=== PATIENT | female | born 1960 ===

== ENCOUNTER 2018-04-26 08:24 | Outpatient (CLI) | payer OTHER | END 2018-04-26 08:27 | disposition home or self-care (01) | LOC: SONOGRAMA 08:24 | DX: E04.1 Nontoxic single thyroid nodule (principal) ==

== ENCOUNTER 2023-09-18 09:50 | Outpatient (CLI) | payer OTHER | END 2023-09-18 09:57 | disposition home or self-care (01) | LOC: SONOGRAMA 09:50 | PROVIDERS: ATTEND Pathology Anatomic Pathology & Clinical Pathology | DX: D34 Benign neoplasm of thyroid gland (principal); E07.89 Other specified disorders of thyroid; E04.2 Nontoxic multinodular goiter ==